=== PATIENT | female | born 1935 | race Caucasian/White ===

== ENCOUNTER → 2017-10-24 | Outpatient (CLI) | payer MEDICARE | END | disposition home or self-care (01) | LOC: CFH 13:25 | PROVIDERS: ATTEND Nurse Practitioner Family | DX: N64.4 Mastodynia (principal) | CPT/HCPCS: 76642; G0204 ==

== ENCOUNTER → 2018-06-14 | Outpatient (CLI) | payer MEDICARE | END | disposition home or self-care (01) | LOC: CFH 14:57 | PROVIDERS: ATTEND Internal Medicine | DX: J47.9 Bronchiectasis, uncomplicated (principal); I70.0 Atherosclerosis of aorta | CPT/HCPCS: 71250 ==

== ENCOUNTER 2018-12-05 13:50 | Inpatient (IN) | payer MEDICARE ==
[~2018-12-05] VITALS: Ht 162.6 cm; Wt 58.6 kg
[2018-12-05] MEDS ORDERED: SODIUM CHLORIDE FLUSH 10ML SYR IVF ONE (14:00)
[2018-12-05] MEDS ORDERED: ALBUTEROL/IPRATROPIUM 2.5MG/0.5MG, 3 ML NPPB ONE (14:00)
[2018-12-05] MEDS ORDERED: ALBUTEROL/IPRATROPIUM 2.5MG/0.5MG, 3 ML ONE (14:05)
--- NOTE | 2018-12-05 14:16 | NUR ---
PT PRESENTS TO ED WITH C/O INCREASED SOB AND EXCERTIONAL SOB X 5 DAYS. PT STATES SHE STARTED HER OLD DOSE OF PREDNISONE A FEW DAYS AGO. PT WITH PRODUCTIVE COUGH WITH YELLOW SPUTUM. PT BREATHING RAPID, LABORED, TALKING IN 3 TO 5 WORD SENTANCES, WITH PURSED LIP BREATHING, AND USE OF ACCESSORY MUSCLES. IV STARTED BY [facility]. PT GIVEN ABOUT 300ML OF NS. PT ALSO GIVEN 1 ALBUTEROL TREATMENT WHICH SHE STATES HAS HELPED. MODERATE AMOUNT OF DISTRESS NOTED. ERMD AT BEDSIDE. WILL CONTINUE TO MONITOR.
--- NOTE | 2018-12-05 14:20 | NUR ---
RT AT BESIDE.
[2018-12-05] MEDS ORDERED: PLEASE ENTER HEIGHT AND WEIGHT MC SCH (14:30)
[2018-12-05] MEDS ORDERED: PLEASE ENTER ALLERGIES MC SCH (14:30)
[2018-12-05 14:43] LABS: BASOPHILS # (AUTO) 0.01 x10^3/uL (0-0.1); BASOPHILS % (AUTO) 0 % (0-1); EOSINOPHILS % (AUTO) 0 % (1-7); LYMPHOCYTES % (AUTO) 9 % (22-44); MD NO; MEAN CORPUSCULAR HEMOGLOBIN 29.2 pg (27.0-34.8); MEAN CORPUSCULAR HGB CONC 33.3 g/dL (32.4-35.8); MEAN CORPUSCULAR VOLUME 87.6 fL (80-100); MEAN PLATELET VOLUME 7.9 fL (7.4-10.4); MONOCYTES # (AUTO) 1.34 x10^3/uL (0.2-0.8); MONOCYTES % (AUTO) 12 % (2-9); NEUTROPHILS # (AUTO) 9.06 x10^3/uL (1.8-6.8); NEUTROPHILS % (AUTO) 79 % (42-75); PLATELET COUNT 221 x10^3/uL (130-400); RED BLOOD COUNT 4.66 x10^6/uL (3.82-5.3)
--- NOTE | 2018-12-05 14:45 | NUR ---
ERMD AWARE OF PT'S CONTINUED INCREASED WOB. AWAITING FOR ORDERS AT THIS TIME. WILL CONTINUE TO MONITOR.
[2018-12-05 14:51] LABS: ALBUMIN 3.3 g/dL (3.4-5.0); ANION GAP 10 mmol/L (5-15); CALCIUM 8.6 mg/dL (8.5-10.1); CHLORIDE 102 mmol/L (98-107)
[2018-12-05 14:57] LABS: CREATININE 0.85 mg/dL (0.55-1.02); TROPONIN I < 0.015 ng/mL (0.000-0.045)
[2018-12-05] MEDS ORDERED: ERTAPENEM 1 GM in SODIUM CHLORIDE 0.9% 50 ML IV ONE (15:30)
[2018-12-05] MEDS ORDERED: SODIUM CHLORIDE 0.9% 1,000ML IVBOLUS ONE (15:30)
[2018-12-05] MEDS ORDERED: DOXYCYCLINE 100 MG in DEXTROSE 5% 250 ML IV SCH (15:30)
[2018-12-05] MEDS ORDERED: SODIUM CHLORIDE 0.9% 1,000 ML IV SCH (15:35)
--- NOTE | 2018-12-05 15:35 | NUR ---
BCX2 COMPLETED. IVF STARTED PER MAR. HOSPITALIST AT BEDSIDE.
--- NOTE | 2018-12-05 15:45 | NUR ---
PT WOB HAS SLIGHTLY DECREASED AT THIS TIME. HEART RATE ALSO HAS SLIGHT DECREASED.
[2018-12-05] MEDS ORDERED: ACETAMINOPHEN 325 MG TABLET PO PRN (16:00)
[2018-12-05] MEDS ORDERED: BENZONATATE 100 MG CAPSULE PO ONE (16:00)
[2018-12-05] MEDS ORDERED: BENZONATATE 100 MG CAPSULE PO PRN (16:00)
[2018-12-05] MEDS ORDERED: ONDANSETRON 2MG/ML, 2ML IVPush PRN (16:00)
[2018-12-05] MEDS ORDERED: hydrALAzine 20 MG/ML, 1ML IVPush PRN (16:00)
--- NOTE | 2018-12-05 16:03 | NUR ---
PT HELPED TO RESTROOM. IV ABX STARTED PER JAN. 5 RIGHTS VERIFIED PRIOR. 3 P'S ADDRESSED. POC DISCUSSED. WILL CONTINUE TO MONITOR.
--- NOTE | 2018-12-05 16:30 | NUR ---
SON AT BEDSIDE. POC DISCUSSED. WILL CONTINUE TO MONITOR.
--- NOTE | 2018-12-05 17:20 | NUR ---
REPORT TO DAMIEN CELESTE.
[2018-12-05 17:49] VITALS: BP 115/69
[2018-12-05] MEDS: ALBUTEROL/IPRATROPIUM 2.5MG/0.5MG, 3 ML NPPB SCH (18:55)
[2018-12-05] MEDS: methylPREDNISolone SOD SUCC 125 MG/2 ML IVPush SCH (19:21)
[2018-12-05] MEDS: HEPARIN 5,000 UNITS/ML, 1ML SQ SCH (19:21)
[2018-12-05] MEDS: CEFTRIAXONE PMX 1GM/50ML 50 ML IV SCH (19:22)
[2018-12-05 20:00] VITALS: BP 109/54
[2018-12-05] MEDS: BUDESONIDE 0.5 MG/2 ML INHA INH SCH (21:00)
[2018-12-05] MEDS: GUAIFENESIN ER 600 MG TABLET PO SCH (21:27)
[2018-12-05] MEDS: DOXYCYCLINE 100MG TABLET PO SCH (21:27)
[2018-12-06] MEDS: methylPREDNISolone SOD SUCC 125 MG/2 ML IVPush SCH ×4 (01:58→19:48)
[2018-12-06 02:00] VITALS: BP 106/57
[2018-12-06] MEDS: HEPARIN 5,000 UNITS/ML, 1ML SQ SCH ×3 (04:46→21:40)
[2018-12-06 05:19] LABS: BASOPHILS % (AUTO) 0 % (0-1); EOSINOPHILS % (AUTO) 0 % (1-7); LYMPHOCYTES # (AUTO) 0.42 x10^3/uL (1-3.4); LYMPHOCYTES % (AUTO) 5 % (22-44); MD NO; MEAN CORPUSCULAR HGB CONC 32.8 g/dL (32.4-35.8); MEAN CORPUSCULAR VOLUME 88.6 fL (80-100); MEAN PLATELET VOLUME 7.8 fL (7.4-10.4); MONOCYTES # (AUTO) 0.44 x10^3/uL (0.2-0.8); MONOCYTES % (AUTO) 5 % (2-9); NEUTROPHILS # (AUTO) 7.96 x10^3/uL (1.8-6.8); NEUTROPHILS % (AUTO) 90 % (42-75); PLATELET COUNT 204 x10^3/uL (130-400); RED BLOOD COUNT 4.14 x10^6/uL (3.82-5.3)
[2018-12-06 05:25] LABS: ANION GAP 6 mmol/L (5-15); CALCIUM 7.9 mg/dL (8.5-10.1); CHLORIDE 109 mmol/L (98-107); CREATININE 0.62 mg/dL (0.55-1.02)
[2018-12-06] MEDS: ALBUTEROL/IPRATROPIUM 2.5MG/0.5MG, 3 ML NPPB SCH ×4 (07:00→20:16)
[2018-12-06 07:22] VITALS: BP 110/63
[2018-12-06] MEDS: BUDESONIDE 0.5 MG/2 ML INHA INH SCH ×2 (07:37→20:16)
[2018-12-06] MEDS: DOXYCYCLINE 100MG TABLET PO SCH ×2 (08:04→19:47)
[2018-12-06] MEDS: GUAIFENESIN ER 600 MG TABLET PO SCH ×2 (08:05→19:48)
[2018-12-06 14:30] VITALS: BP 114/68
[2018-12-06] MEDS: CEFTRIAXONE PMX 1GM/50ML 50 ML IV SCH (19:48)
[2018-12-06 20:00] VITALS: BP 107/68
[2018-12-07] MEDS: methylPREDNISolone SOD SUCC 125 MG/2 ML IVPush SCH ×4 (01:26→20:06)
[2018-12-07 01:29] VITALS: BP 101/64
[2018-12-07] MEDS: HEPARIN 5,000 UNITS/ML, 1ML SQ SCH ×3 (05:00→20:05)
[2018-12-07] MEDS: ALBUTEROL/IPRATROPIUM 2.5MG/0.5MG, 3 ML NPPB SCH ×4 (07:00→19:20)
[2018-12-07 08:03] VITALS: BP 104/68
[2018-12-07] MEDS: BUDESONIDE 0.5 MG/2 ML INHA INH SCH ×2 (09:00→19:20)
[2018-12-07] MEDS: GUAIFENESIN ER 600 MG TABLET PO SCH ×2 (09:14→20:06)
[2018-12-07] MEDS: DOXYCYCLINE 100MG TABLET PO SCH ×2 (09:14→20:06)
[2018-12-07 12:34] LABS: MEAN CORPUSCULAR HEMOGLOBIN 28.8 pg (27.0-34.8); MEAN CORPUSCULAR HGB CONC 32.2 g/dL (32.4-35.8); MEAN CORPUSCULAR VOLUME 89.2 fL (80-100); MEAN PLATELET VOLUME 7.3 fL (7.4-10.4); PLATELET COUNT 240 x10^3/uL (130-400); RED BLOOD COUNT 4.03 x10^6/uL (3.82-5.3)
[2018-12-07 12:44] LABS: ANION GAP 8 mmol/L (5-15); CALCIUM 8.4 mg/dL (8.5-10.1); CHLORIDE 106 mmol/L (98-107)
[2018-12-07 12:45] LABS: CREATININE 0.76 mg/dL (0.55-1.02)
[2018-12-07 13:15] LABS: BASOPHILS % (AUTO) 0 % (0-1); EOSINOPHILS % (AUTO) 0 % (1-7); LYMPHOCYTES # (AUTO) 0.31 x10^3/uL (1-3.4); LYMPHOCYTES % (AUTO) 2 % (22-44); MD SCAN; MONOCYTES # (AUTO) 0.84 x10^3/uL (0.2-0.8); MONOCYTES % (AUTO) 5 % (2-9); NEUTROPHILS # (AUTO) 15.66 x10^3/uL (1.8-6.8); NEUTROPHILS % (AUTO) 93 % (42-75)
[2018-12-07 13:47] VITALS: BP 109/72
[2018-12-07 20:00] VITALS: BP 120/63
[2018-12-07] MEDS: CEFTRIAXONE PMX 1GM/50ML 50 ML IV SCH (20:06)
[2018-12-08] MEDS: methylPREDNISolone SOD SUCC 125 MG/2 ML IVPush SCH ×4 (01:24→21:22)
[2018-12-08 02:00] VITALS: BP 124/65
[2018-12-08 04:49] LABS: MEAN CORPUSCULAR HEMOGLOBIN 29.7 pg (27.0-34.8); MEAN CORPUSCULAR HGB CONC 33.5 g/dL (32.4-35.8); MEAN CORPUSCULAR VOLUME 88.8 fL (80-100); MEAN PLATELET VOLUME 7.7 fL (7.4-10.4); PLATELET COUNT 217 x10^3/uL (130-400); RED BLOOD COUNT 3.94 x10^6/uL (3.82-5.3); RED CELL DISTRIBUTION WIDTH 13.9 % (9.6-15.2)
[2018-12-08 04:57] LABS: ANION GAP 4 mmol/L (5-15); CALCIUM 8.4 mg/dL (8.5-10.1); CHLORIDE 106 mmol/L (98-107); CREATININE 0.62 mg/dL (0.55-1.02)
[2018-12-08] MEDS: HEPARIN 5,000 UNITS/ML, 1ML SQ SCH ×3 (05:00→21:00)
[2018-12-08 05:57] LABS: BASOPHILS % (AUTO) 0 % (0-1); EOSINOPHILS % (AUTO) 0 % (1-7); LYMPHOCYTES # (AUTO) 0.32 x10^3/uL (1-3.4); LYMPHOCYTES % (AUTO) 2 % (22-44); MD SCAN; MONOCYTES # (AUTO) 0.44 x10^3/uL (0.2-0.8); MONOCYTES % (AUTO) 3 % (2-9); NEUTROPHILS % (AUTO) 95 % (42-75)
[2018-12-08] MEDS: ALBUTEROL/IPRATROPIUM 2.5MG/0.5MG, 3 ML NPPB SCH ×4 (07:00→20:00)
[2018-12-08 08:00] VITALS: BP 123/69
[2018-12-08] MEDS ORDERED: OMNIPAQUE 350 MG/ML, 100ML BOTTLE ONE (08:20)
[2018-12-08] MEDS: GUAIFENESIN ER 600 MG TABLET PO SCH ×2 (08:52→21:22)
[2018-12-08] MEDS: DOXYCYCLINE 100MG TABLET PO SCH ×2 (08:52→21:21)
[2018-12-08] MEDS: BUDESONIDE 0.5 MG/2 ML INHA INH SCH ×2 (09:00→20:24)
[2018-12-08 12:49] LABS: RAPID INFLUENZA A Negative (Negative); RAPID INFLUENZA B Negative (Negative)
[2018-12-08 14:34] VITALS: BP 153/74
[2018-12-08 19:23] VITALS: BP_SYST 124; BP_DIAS 37; BP_DIAS 67
[2018-12-08 20:25] VITALS: BP 125/71
[2018-12-08] MEDS: CEFTRIAXONE PMX 1GM/50ML 50 ML IV SCH (21:22)
[2018-12-09 03:48] VITALS: BP 136/66
[2018-12-09] MEDS: methylPREDNISolone SOD SUCC 125 MG/2 ML IVPush SCH ×4 (03:48→20:14)
[2018-12-09] MEDS: HEPARIN 5,000 UNITS/ML, 1ML SQ SCH ×3 (05:12→20:52)
[2018-12-09 06:46] LABS: BASOPHILS % (AUTO) 0 % (0-1); EOSINOPHILS % (AUTO) 0 % (1-7); LYMPHOCYTES # (AUTO) 0.39 x10^3/uL (1-3.4); LYMPHOCYTES % (AUTO) 3 % (22-44); MD NO; MEAN CORPUSCULAR HEMOGLOBIN 28.9 pg (27.0-34.8); MEAN CORPUSCULAR HGB CONC 32.9 g/dL (32.4-35.8); MEAN CORPUSCULAR VOLUME 87.7 fL (80-100); MEAN PLATELET VOLUME 7.6 fL (7.4-10.4); MONOCYTES # (AUTO) 0.65 x10^3/uL (0.2-0.8); MONOCYTES % (AUTO) 5 % (2-9); NEUTROPHILS # (AUTO) 12.72 x10^3/uL (1.8-6.8); NEUTROPHILS % (AUTO) 92 % (42-75); PLATELET COUNT 216 x10^3/uL (130-400); RED BLOOD COUNT 4.27 x10^6/uL (3.82-5.3); RED CELL DISTRIBUTION WIDTH 13.9 % (9.6-15.2)
[2018-12-09 06:56] LABS: CHLORIDE 100 mmol/L (98-107)
[2018-12-09 07:02] LABS: ANION GAP 4 mmol/L (5-15); CALCIUM 8.5 mg/dL (8.5-10.1); CREATININE 0.61 mg/dL (0.55-1.02)
[2018-12-09] MEDS: ALBUTEROL/IPRATROPIUM 2.5MG/0.5MG, 3 ML NPPB SCH ×4 (07:31→19:40)
[2018-12-09] MEDS: BUDESONIDE 0.5 MG/2 ML INHA INH SCH ×2 (07:32→19:40)
[2018-12-09 09:15] VITALS: BP 111/69
[2018-12-09] MEDS: GUAIFENESIN ER 600 MG TABLET PO SCH ×2 (09:17→20:14)
[2018-12-09] MEDS: DOXYCYCLINE 100MG TABLET PO SCH (09:17)
[2018-12-09] MEDS ORDERED: FUROSEMIDE 20 MG/2 ML IV ONE (14:00)
[2018-12-09] MEDS: AZITHROMYCIN 500 MG in SODIUM CHLORIDE 0.9% 250 ML IV SCH (14:14)
[2018-12-09 14:29] VITALS: BP 133/74
[2018-12-09 19:00] VITALS: BP 114/71
[2018-12-09] MEDS: CEFTRIAXONE PMX 1GM/50ML 50 ML IV SCH (20:14)
[2018-12-10 00:45] VITALS: BP 106/69
[2018-12-10] MEDS: methylPREDNISolone SOD SUCC 125 MG/2 ML IVPush SCH ×4 (03:57→20:03)
[2018-12-10] MEDS: HEPARIN 5,000 UNITS/ML, 1ML SQ SCH ×3 (05:00→20:11)
[2018-12-10 05:03] LABS: MEAN CORPUSCULAR HEMOGLOBIN 28.5 pg (27.0-34.8); MEAN CORPUSCULAR HGB CONC 32.4 g/dL (32.4-35.8); MEAN PLATELET VOLUME 7.4 fL (7.4-10.4); PLATELET COUNT 226 x10^3/uL (130-400); RED BLOOD COUNT 4.26 x10^6/uL (3.82-5.3); RED CELL DISTRIBUTION WIDTH 14.1 % (9.6-15.2)
[2018-12-10 05:16] LABS: ALBUMIN 2.2 g/dL (3.4-5.0); ANION GAP 7 mmol/L (5-15); CHLORIDE 101 mmol/L (98-107); CREATININE 0.57 mg/dL (0.55-1.02)
[2018-12-10 06:06] LABS: BASOPHILS # (AUTO) 0.01 x10^3/uL (0-0.1); BASOPHILS % (AUTO) 0 % (0-1); EOSINOPHILS % (AUTO) 0 % (1-7); LYMPHOCYTES % (AUTO) 5 % (22-44); MD SCAN; MONOCYTES # (AUTO) 0.59 x10^3/uL (0.2-0.8); MONOCYTES % (AUTO) 5 % (2-9); NEUTROPHILS % (AUTO) 90 % (42-75)
[2018-12-10] MEDS: ALBUTEROL/IPRATROPIUM 2.5MG/0.5MG, 3 ML NPPB SCH ×4 (07:20→19:05)
[2018-12-10] MEDS: BUDESONIDE 0.5 MG/2 ML INHA INH SCH ×2 (07:20→19:05)
[2018-12-10] MEDS: GUAIFENESIN ER 600 MG TABLET PO SCH ×2 (08:35→20:03)
[2018-12-10 08:49] VITALS: BP 129/73
[2018-12-10] MEDS ORDERED: FUROSEMIDE 20 MG/2 ML IV ONE (10:00)
[2018-12-10] MEDS: AZITHROMYCIN 500 MG in SODIUM CHLORIDE 0.9% 250 ML IV SCH (13:31)
[2018-12-10 13:33] VITALS: BP 118/70
[2018-12-10] MEDS: CEFTRIAXONE PMX 1GM/50ML 50 ML IV SCH (20:03)
[2018-12-10 20:18] VITALS: BP 122/67
[2018-12-11 02:34] VITALS: BP 125/73
[2018-12-11] MEDS: methylPREDNISolone SOD SUCC 125 MG/2 ML IVPush SCH ×4 (03:40→22:16)
[2018-12-11] MEDS: HEPARIN 5,000 UNITS/ML, 1ML SQ SCH ×3 (05:00→21:00)
[2018-12-11 06:34] LABS: BASOPHILS # (AUTO) 0.01 x10^3/uL (0-0.1); BASOPHILS % (AUTO) 0 % (0-1); EOSINOPHILS % (AUTO) 0 % (1-7); LYMPHOCYTES # (AUTO) 0.65 x10^3/uL (1-3.4); LYMPHOCYTES % (AUTO) 5 % (22-44); MD NO; MEAN CORPUSCULAR HEMOGLOBIN 29.7 pg (27.0-34.8); MEAN CORPUSCULAR HGB CONC 33.7 g/dL (32.4-35.8); MEAN CORPUSCULAR VOLUME 88.1 fL (80-100); MEAN PLATELET VOLUME 7.6 fL (7.4-10.4); MONOCYTES # (AUTO) 0.66 x10^3/uL (0.2-0.8); MONOCYTES % (AUTO) 5 % (2-9); NEUTROPHILS # (AUTO) 11.16 x10^3/uL (1.8-6.8); NEUTROPHILS % (AUTO) 89 % (42-75); PLATELET COUNT 224 x10^3/uL (130-400); RED BLOOD COUNT 4.12 x10^6/uL (3.82-5.3)
[2018-12-11 06:42] LABS: ALBUMIN 2.1 g/dL (3.4-5.0); ANION GAP 4 mmol/L (5-15); CHLORIDE 100 mmol/L (98-107); CREATININE 0.58 mg/dL (0.55-1.02)
[2018-12-11 06:54] VITALS: BP 128/74
[2018-12-11] MEDS: ALBUTEROL/IPRATROPIUM 2.5MG/0.5MG, 3 ML NPPB SCH ×4 (07:00→20:45)
[2018-12-11] MEDS: GUAIFENESIN ER 600 MG TABLET PO SCH ×2 (07:48→21:22)
[2018-12-11] MEDS: BUDESONIDE 0.5 MG/2 ML INHA INH SCH ×2 (07:57→20:45)
[2018-12-11] MEDS: VANCOMYCIN 50 MG/ML ORAL SUSP PO SCH ×2 (09:15→21:22)
[2018-12-11 12:55] VITALS: BP 146/80
[2018-12-11] MEDS: AZITHROMYCIN 500 MG in SODIUM CHLORIDE 0.9% 250 ML IV SCH (13:00)
[2018-12-11 17:24] VITALS: BP 147/71
[2018-12-11 20:20] VITALS: BP 139/80
[2018-12-11] MEDS: CEFTRIAXONE PMX 1GM/50ML 50 ML IV SCH (21:22)
[2018-12-12 00:24] VITALS: BP 137/73
[2018-12-12] MEDS: HEPARIN 5,000 UNITS/ML, 1ML SQ SCH ×2 (05:00→13:00)
[2018-12-12] MEDS: methylPREDNISolone SOD SUCC 125 MG/2 ML IVPush SCH ×2 (05:44→10:27)
[2018-12-12] MEDS: ALBUTEROL/IPRATROPIUM 2.5MG/0.5MG, 3 ML NPPB SCH ×3 (06:56→14:53)
[2018-12-12] MEDS: BUDESONIDE 0.5 MG/2 ML INHA INH SCH (06:57)
[2018-12-12 07:54] VITALS: BP 122/72
[2018-12-12] MEDS: VANCOMYCIN 50 MG/ML ORAL SUSP PO SCH (08:43)
[2018-12-12] MEDS: GUAIFENESIN ER 600 MG TABLET PO SCH (08:43)
[2018-12-12 12:37] VITALS: BP 137/68
[2018-12-12] MEDS ORDERED: CEFT1FRO2 IVPB (12:59)
[2018-12-12] MEDS ORDERED: DOXY100T51 PO (12:59)
[2018-12-12] MEDS ORDERED: BENZ-17 PO (12:59)
[2018-12-12] MEDS ORDERED: GUAI600T31 PO (12:59)
[2018-12-12] MEDS ORDERED: METH4TAB2 PO (12:59)
[2018-12-12 13:14] LABS: ALBUMIN 2.4 g/dL (3.4-5.0); ANION GAP 5 mmol/L (5-15); CALCIUM 8.4 mg/dL (8.5-10.1); CHLORIDE 100 mmol/L (98-107)
[2018-12-12] MEDS ORDERED: FUROSEMIDE 40 MG/4 ML IV ONE (13:30)
[2018-12-12] MEDS: AZITHROMYCIN 500 MG in SODIUM CHLORIDE 0.9% 250 ML IV SCH (13:42)
[2018-12-12] MEDS ORDERED: methylPREDNISolone SOD SUCC 125 MG/2 ML IVPush SCH (22:00)
[2018-12-13] MEDS ORDERED: ALBU1.25 NEB (17:04)
== END 2018-12-12 19:04 | DRG 871 ==
LOC: ED 16:11 → EDIP 16:22 → 3NE 16:58 → 4EST 17:38
PROVIDERS: ADMIT Internal Medicine; ATTEND Internal Medicine
DX: A41.9 Sepsis, unspecified organism (principal); J15.9 Unspecified bacterial pneumonia; J96.01 Acute respiratory failure with hypoxia; J96.21 Acute and chronic respiratory failure with hypoxia; I50.33 Acute on chronic diastolic (congestive) heart failure; E87.1 Hypo-osmolality and hyponatremia; J45.51 Severe persistent asthma with (acute) exacerbation; J47.0 Bronchiectasis with acute lower respiratory infection; J98.4 Other disorders of lung; I34.0 Nonrheumatic mitral (valve) insufficiency; I27.20 Pulmonary hypertension, unspecified; K44.9 Diaphragmatic hernia without obstruction or gangrene; Z88.8 Allergy status to other drugs, medicaments and biological substances
CPT/HCPCS: 36415; 36600; 71045; 71275; 80048; 82040; 82803; 83605; 83735; 83880; 84100; 84484; 85025; 87015; 87040; 87070; 87081; 87102; 87116; 87147; 87205; 87206; 87400; 93005; 93306; 94640; 94667; 94668; 96374; 99285; G0378; J0456; J0696; J1335; J1644; J1940; J3370; J7620; J7626; Q9967; J2930; J7030; J7050; J7512

== ENCOUNTER → 2019-05-02 | Outpatient (CLI) | payer MEDICARE ==
[~2019-05-02] MED LIST: ALBU1.25 NEB; BENZ-17 PO; CEFT1FRO2 IVPB; DOXY100T51 PO; GUAI600T31 PO; METH4TAB2 PO
== END | disposition home or self-care (01) ==
LOC: CFH 11:51
PROVIDERS: ATTEND Licensed Practical Nurse
DX: N64.4 Mastodynia (principal); Z80.3 Family history of malignant neoplasm of breast
CPT/HCPCS: 76642; 77066; G0279

== ENCOUNTER → 2020-04-14 | Outpatient (CLI) | payer MEDICARE ==
[~2020-04-14] MED LIST changes: +ACET325T26 PO; +GUAI200T37 PO; +IBUP-1623 PO; +LACT1TAB13 PO; +LEVO750T26 PO; +METH500T7 PO; +PRED20TA PO; +[UNRECOGNIZED DRUG - OTHER] PO
== END | disposition home or self-care (01) ==
LOC: CFH 11:44
PROVIDERS: ATTEND Nurse Practitioner
DX: J47.9 Bronchiectasis, uncomplicated (principal); J98.11 Atelectasis; K44.9 Diaphragmatic hernia without obstruction or gangrene; J45.909 Unspecified asthma, uncomplicated; J96.11 Chronic respiratory failure with hypoxia
CPT/HCPCS: 71250

== ENCOUNTER → 2020-06-16 | Outpatient (CLI) | payer MEDICARE | END | disposition home or self-care (01) | LOC: CFH 12:00 | PROVIDERS: ATTEND Nurse Practitioner Family | DX: Z12.31 Encounter for screening mammogram for malignant neoplasm of breast (principal) | CPT/HCPCS: 77063; 77067 ==

== ENCOUNTER → 2021-05-29 | Outpatient (CLI) | payer MEDICARE ==
[~2021-05-29] MED LIST changes: +METH-639 PO; -METH500T7 PO; +REGADENOSON 0.4 MG/5 ML SYRINGE ONE
== END | disposition home or self-care (01) ==
LOC: CFH 11:47
PROVIDERS: ATTEND Internal Medicine Cardiovascular Disease
DX: R07.89 Other chest pain (principal); R06.02 Shortness of breath; I25.10 Atherosclerotic heart disease of native coronary artery without angina pectoris
CPT/HCPCS: 78452; 93017; A9502; J2785

== ENCOUNTER → 2021-06-02 | Outpatient (CLI) | payer MEDICARE ==
[~2021-06-02] MED LIST changes: -REGADENOSON 0.4 MG/5 ML SYRINGE ONE
== END | disposition home or self-care (01) ==
LOC: CFH 10:49
PROVIDERS: ATTEND Internal Medicine Cardiovascular Disease
DX: I08.8 Other rheumatic multiple valve diseases (principal); R07.89 Other chest pain; R06.02 Shortness of breath
CPT/HCPCS: 93306

== ENCOUNTER 2021-07-01 11:47 | Outpatient (CLI) | payer MEDICARE | END 2021-07-01 23:59 | disposition home or self-care (01) | LOC: CFH 11:47 | PROVIDERS: ATTEND Nurse Practitioner Family | DX: Z12.31 Encounter for screening mammogram for malignant neoplasm of breast (principal) | CPT/HCPCS: 77063; 77067 ==